=== PATIENT | male | born 1975 | race American Indian/Alaskan Native ===

== ENCOUNTER 2017-01-23 07:46 | Emergency (ER) | payer MEDICAID ==
[2017-01-23 08:29] LABS: BASO % 0.4 % (0.0-2.0); HEMATOCRIT 38.1 % (35.0-51.0); LYMPH # 0.6 K/uL (1.0-4.3); LYMPH % 6.4 % (20.0-40.0); MEAN CELL VOLUME 84.9 fl (80.0-94.0); MEAN CORPUSCULAR HEMOGLOBIN 27.9 pg (27.0-31.0); MEAN CORPUSCULAR HGB CONC 32.8 g/dL (33.0-37.0); MEAN PLATELET VOLUME 6.6 fl (7.2-11.7); MONO # 0.2 K/uL (0.0-0.8); MONO % 2.2 % (0.0-10.0); NEUT # 8.7 K/uL (1.8-7.0); PLATELET COUNT 271 K/uL (130-400); RED CELL DISTRIBUTION WIDTH 14.2 % (11.5-14.5); WHITE BLOOD COUNT 9.5 K/uL (4.8-10.8)
[2017-01-23 08:38] LABS: PARTIAL THROMBOPLASTIN TIME 30.5 Seconds (25.6-37.1)
[2017-01-23 08:54] LABS: ALB/GLOB RATIO 1.3 (1.0-2.1); ALKALINE PHOSPHATASE 93 U/L (38-126); ALT/SGPT 29 U/L (21-72); AST/SGOT 22 U/L (17-59); BILIRUBIN,TOTAL 0.6 mg/dl (0.2-1.3); BLOOD UREA NITROGEN 12 mg/dl (9-20); CALCIUM 8.9 mg/dL (8.4-10.2); CARBON DIOXIDE 26 mmol/L (22-30); CHLORIDE 102 mmol/L (98-107); GFR AFRICAN-AMERICAN > 60; GLUCOSE,RANDOM 173 mg/dL (75-110); SODIUM 140 mmol/l (132-148); TOTAL PROTEIN 7.1 G/DL (6.3-8.2)
[2017-01-23] MEDS ORDERED: Sodium Chloride 0.9% 1,000 ML IV STA (09:14)
[2017-01-23 09:15] LABS: NEUTROPHIL 90 % (42-75); TOTAL CELLS COUNTED 100
[2017-01-23 11:15] LABS: RBC URINE 6 /hpf (0-3); URINE BILIRUBIN NEGATIVE (NEGATIVE); URINE BLOOD NEGATIVE (NEGATIVE); URINE COLOR YELLOW (YELLOW); URINE GLUCOSE (UA) NEG (Normal); URINE KETONE NEGATIVE (NEGATIVE); URINE LEUKOCYTE ESTERASE NEG Leu/uL (Negative); URINE PROTEIN NEGATIVE (NEGATIVE); URINE UROBILINOGEN 0.2-1.0 mg/dL (0.2-1.0); WBC URINE < 1 /hpf (0-5)
[2017-01-23 11:56] VITALS: BP 120/70; PULSE 72; RESP 20; TEMP 98; O2SAT 98
== END 2017-01-23 11:56 | disposition home or self-care (01) ==
LOC: H.ER 07:46
DX: R07.89 Other chest pain (principal); R73.9 Hyperglycemia, unspecified
CPT/HCPCS: 71020; 80053; 81003; 84484; 85025; 85378; 85610; 85730; 93005; 99283; J7040